=== PATIENT | male | born 1975 | race Caucasian/White ===

== ENCOUNTER 2024-07-28 12:42 | Emergency (ER) | payer OTHER, SELFPAY ==
[2024-07-28 12:43] VITALS: BP 132/95; PULSE 97; RESP 16; TEMP 36.4; O2SAT 97; BMI 29.5
--- NOTE | 2024-07-28 13:36 | EKG12_ITS ---
Test Reason : CHEST PAIN Blood Pressure : */* mmHG Vent. Rate : 76 BPM Atrial Rate : 76 BPM P-R Int : 204 ms QRS Dur : 96 ms QT Int : 376 ms P-R-T Axes : 22 -1 0 degrees QTcB Int : 423 ms Normal sinus rhythm Moderate voltage criteria for LVH, may be normal variant ( R in aVL , [place] product ) Inferior infarct , age undetermined Abnormal ECG Confirmed by GOLDIE PÉREZ MD ([id number]), social media editor MORGAN JACKSON ([id number]) on 07/29/2024 8:22:33 AM Referred By: Romaine Gooden Confirmed By: GOLDIE PÉREZ MD
[2024-07-28 13:43] VITALS: BP 126/96; PULSE 83; RESP 18; O2SAT 97
--- NOTE | 2024-07-28 13:52 | RAD_ITS ---
STUDY: X-RAY CHEST REASON FOR EXAM: Male, 49 years old. Chest pain TECHNIQUE: Single AP portable view of the chest. COMPARISON: None. FINDINGS: Lungs are expanded with bibasilar atelectasis. No organized infiltrate. Normal size heart. Normal mediastinum and alesha. Normal visualized pulmonary arteries. Normal visualized aortic arch and descending thoracic aorta. Normal visualized thoracic spine. Normal visualized ribs, clavicles, and shoulders. There is no demonstrated abnormality of the visualized soft tissue structures of the upper abdomen. RAD/Chest 1 View (Portable) IMPRESSION: Bibasilar atelectasis Electronically Signed: Chace Bangura MD at 14:13 EST ,
[2024-07-28 13:54] LABS: Absolute Lymphocyte Count 2.21 X10^3/uL (0.83-4.51); Absolute Neutrophil Count 5.3 X10^3/uL (2.0-7.7); Basophil# 0.06 X10^3/uL; Basophil% 0.7 % (0-1); Eosinophil# 0.12 X10^3/uL; Eosinophils% 1.4 % (0-5); Hematocrit 48.6 % (40-54); Hemoglobin 16.7 g/dL (13.0-16.5); Lymphocyte # 2.21 X10^3/ul (0.83-4.51); Lymphocyte % 25.5 % (19-41); Mean Corp Hgb Conc 34.4 g/dL (32-36); Mean Corpuscular Volume 84.4 fL (80-94); Mean Platelet Vol. 10.2 fl (6.2-12.0); Monocyte% 10.4 % (0-10); NRBC Flagged by Analyzer 0 % (0-5); Neutrophil # 5.34 X10^3/uL (2.7-7.7); Neutrophil % 61.8 % (47-70); Platelet Count 216 K/mm3 (150-450); RBC Distribution Width CV 13.5 % (11.6-14.6); RBC Distribution Width SD 41.6 fl (35.1-43.9); Red Blood Count 5.76 M/mm3 (4.6-6.2); White Blood Count 8.7 K/mm3 (4.4-11.0)
[2024-07-28 14:00] VITALS: BP 120/97; PULSE 82; RESP 18; O2SAT 92; O2SAT 99
--- NOTE | 2024-07-28 14:09 | ED.VIS.CHEST ---
HPI History of Present Illness Chief Complaint: Chest Pain Informant: patient Onset/Context/Timing Onset: Yesterday Activity at onset: gradual Timing: Intermittent Quality: Positive for Dull Location: Substernal Worsened By: - (Laying down) Relieved By: Nothing Associated Symptoms: Positive for Cough; Negative for Nausea, Vomiting, Diaphoresis, Dyspnea, Fever, Lightheadedness, Acid Reflux or Palpitations Narrative Narrative: Patient presents with chest pain that began yesterday. Patient states it is intermittent. Patient states it comes on gradually. Patient describes it as dull. Patient states it is over the substernal area. Patient states it gets worse sometimes when he lays down. Patient states nothing seems to help with it. Patient admits to a mild cough. Patient also admits to some pain in his back when he laid down last night. Patient denies any nausea or vomiting. Patient denies any lightheadedness or dizziness. Patient denies any shortness of breath or diaphoresis. CVD Risk Factors: Negative for Hypertension, Diabetes, Hypercholesterolemia, Family History 1' </=55 or Smoking PE Risk Factors: Negative for Recent Travel/Surgery, Recent Immobilization, Prior DVT or PE, Cancer or OCP + Smoking + >/=35 PFSH PFSH Medical History no medical history no medical history Allergy/AdvReac Type Severity Reaction Status Date / Time No Known Allergies Allergy Verified 07/28/24 12:46 Surgical History History of facial surgery Social History (Updated 07/28/24 @ 14:16 by Marina Cuevas) household members: family housing: house Smoking Status: Never smoker ROS ROS ED Constitutional Constitutional ED: Denies chills or fever(s) Eyes Eyes: Denies blurry vision or change in vision ENT ENT ED: Denies rhinorrhea or sore throat Cardiovascular Cardiovascular: Reports as per HPI and chest pain; Denies palpitations Respiratory/Chest Respiratory/Chest: Reports cough; Denies dyspnea Gastrointestinal Gastrointestinal: Denies nausea or vomiting Genitourinary Genitourinary ED: Denies dysuria or hematuria Musculoskeletal Musculoskeletal: Reports back pain; Denies neck pain Integumentary Denies abscess or rash Neurologic Neurologic: Denies headache(s) or weakness Allergic/Immunologic Allergic/Immunologic ED: Denies mouth swelling or urticaria EXAM Physical Exam Const Vital Signs: 07/28/24 12:43 07/28/24 13:43 07/28/24 14:00 Temperature 97.5 F L Temperature Source Oral Pulse Rate 97 83 Respiratory Rate 16 18 Respiratory Effort Blood Pressure 132/95 H 126/96 H Blood Pressure Mean 107 106 Pulse Ox 97 97 99 Oxygen Delivery Method Room Air Room Air Room Air 07/28/24 14:00 07/28/24 14:16 07/28/24 15:17 Temperature Temperature Source Pulse Rate 82 81 Respiratory Rate 18 16 Respiratory Effort Normal Non-Labored Blood Pressure 120/97 H 126/94 H Blood Pressure Mean 104 104 Pulse Ox 92 93 Oxygen Delivery Method Positive well nourished and well developed General Appearance ED: well developed and NAD HEENT Reports moist mucous membranes Neck supple and no JVD Chest Wall inspection of chest normal and palpation of chest normal Resp normal respiratory effort and clear to auscultation bilaterally Cardio regular rate and regular rhythm GI soft to palpation, non-tender and non-distended Extremity normal to inspection General Extremety ED: Negative for edema or tenderness General Extremity: Negative for edema Neuro oriented x3, CN's II-XII intact bilaterally and no sensory deficits noted Sensorium / Orientation: awake and alert Motor Exam: strength 5/5 throughout Psych mental status grossly normal Heart Score History: Slightly/Non-Suspicious ECG: Nonspecific Repolarization Age: >45 - <65 years Risk Factors: No Risk Factors Troponin: </= Normal Limit Score: 2 MDM MDM MDM Narrative Medical decision making narrative: Differential diagnosis includes cardiac dysrhythmia, cardiac ischemia, pneumonia, bronchitis, gastroesophageal reflux disease, anxiety, and musculoskeletal pain. EKG will be obtained to assess for cardiac dysrhythmia and cardiac ischemia. Chest x-ray will be obtained to assess for pneumonia and pneumothorax. CBC will be obtained to assess for leukocytosis and anemia. Basic metabolic profile will be obtained to assess for electrolyte abnormality and renal function. High-sensitivity troponin will be obtained to assess for cardiac ischemia. Lab Data Attestation: I reviewed the patient's lab results. Lab results narrative: CBC was reviewed and is within normal limits. Basic metabolic profile was reviewed and was within normal limits. High-sensitivity troponin was reviewed and was less than 3. Labs: Laboratory Results - last 24 hr 07/28/24 13:45 WBC 8.7 RBC 5.76 Hgb 16.7 H Hct 48.6 MCV 84.4 MCH 29.0 MCHC 34.4 RDW Std Deviation 41.6 RDW Coeff of Cony 13.5 Plt Count 216 MPV 10.2 Immature Gran % (Auto) 0.200 Neut % (Auto) 61.8 Lymph % (Auto) 25.5 [place] % (Auto) 10.4 H Eos % (Auto) 1.4 Baso % (Auto) 0.7 Absolute Neuts (auto) 5.3 Absolute Lymphs (auto) 2.21 Nucleated RBC % 0 Sodium 137 Potassium 4.4 Chloride 104 Carbon Dioxide 28.0 Anion Gap 5 BUN 14 Creatinine 1.03 Estim Creat Clear Calc 86.75 Est GFR (MDRD) Af Amer 98 Est GFR (MDRD) Non-Af 81 BUN/Creatinine Ratio 13.6 Glucose 102 Calcium 9.8 Troponin I High Sens < 3 L Radiography Chest X-Ray - ED: 1 View, Read by ED Physician, Read by Radiologist and No Acute Disease Diagnostic Testing: Clinical Impression(s) from Imaging Studies Chest X-Ray 07/28/24 13:52 IMPRESSION: Bibasilar atelectasis Electronically Signed: Chace Bangura MD at 14:13 EST Reading Location ID and State: [facility] / [place] , Service support , Portable 1 view chest x-ray was obtained. On my independent interpretation, lung qiu show bibasilar atelectasis. There is normal cardiac silhouette. Bony thorax is normal. There is no acute process noted. Radiologist also interpreted the x-ray and agrees. EKG Initial EKG: Attestation: I personally reviewed and interpreted this EKG as follows: Interpretation: Sinus Rhythm (76) and Non-Specific ST Changes Comments: EKG was obtained. On my independent interpretation, it shows a normal sinus rhythm with a rate of 76. CA interval was borderline at 204 ms. QRS interval was normal at 96 ms. QTc interval was normal at 423 ms. [place] was normal. There is left ventricular hypertrophy noted. There are nonspecific ST-T wave changes in leads III and aVF. Prior EKG tracings: not available for review Prior: No Prior Treatment and Re-Evaluation :: Patient was given dose of aspirin here. Patient was advised of this finding. Patient was given a GI cocktail. Patient has a HEART score of 2. Patient was advised that this is low risk for acute cardiac event. Patient was instructed to follow-up with his primary care physician in 5 to 7 days. Patient understood and was agreeable with the plan. All questions were answered. Discharge Plan Triage Chief Complaint: Chest Pain ED Provider: Romaine Gooden Dx/Rx/DC Orders Clinical Impression: Chest pain, Elevated blood pressure reading Instructions: ED Chest Pain, Uncertain Cause Primary Care Provider: Nicholas Culp Referrals: Nicholas Culp DO [Primary Care Provider] - 5-7 Days Print Language: Yakut Disposition Disposition: Home, Self Care
[2024-07-28 14:38] LABS: Anion Gap 5 (5-15); BUN 14 mg/dL (7-18); BUN/Creat Ratio 13.6 RATIO (10-20); Calcium,Total 9.8 mg/dL (8.5-10.1); Chloride 104 mmol/L (98-107); Creatinine, Serum 1.03 mg/dL (0.70-1.30); EST Glomerular Filtration Rate 81 mL/min (>60); Est Glom Filt Rate - Afr Amer 98 mL/min (>60); Estimated Creatinine Clearance 86.75 ml/min; Glucose 102 mg/dL (74-106); Potassium 4.4 mmol/L (3.5-5.1); Sodium Level 137 mmol/L (136-145); Troponin-I HS (w/2H Reflex) < 3 pg/mL (3.0-78.0)
[2024-07-28 15:17] VITALS: BP 126/94; PULSE 81; RESP 16; O2SAT 93
[2024-07-28] MEDS: Mag Hydrox/Al Hydrox/Simeth 30 ML UDC PO (15:35)
[2024-07-28] MEDS: Lidocaine 2% Viscous15 ML UDC 15 ML PO (15:35)
[2024-07-28 15:49] VITALS: BP 127/98; PULSE 82; RESP 16; TEMP 36.6; O2SAT 94
[2024-07-28 15:51] LABS: Reflex Troponin-HS? (from REC) Y
== END 2024-07-28 15:50 | disposition home or self-care (01) ==
PROVIDERS: Emergency Provider Emergency Medicine; PCP Family Medicine; Referring Provider Emergency Medicine; Visit Provider Emergency Medicine
DX: R07.9 Chest pain, unspecified (principal); R03.0 Elevated blood-pressure reading, without diagnosis of hypertension
CPT/HCPCS: 71045; 80048; 84484; 85025; 93005; 99284; A4216